=== PATIENT | female | born 1980 | race Caucasian/White ===

== ENCOUNTER 2019-04-12 09:06 | Day surgery (SDC) | payer OTHER ==
[2019-04-12] MEDS ORDERED: HYDROmorphONE 1 MG/5 ML IV SYRINGE IV ×3 (11:30)
[2019-04-12] MEDS ORDERED: OXYCODONE/ACETAMINOPHEN (5/325) TAB PO (11:30)
[2019-04-12] MEDS ORDERED: FENTAnyl 50 MCG/ML VIAL IV (11:30)
[2019-04-12] MEDS ORDERED: MEPERIDINE 25 MG INJ IV (11:30)
[2019-04-12] MEDS ORDERED: PROCHLORPERAZINE 10 MG INJ IV (11:30)
[2019-04-12] MEDS ORDERED: DIPHENHYDRAMINE 50 MG INJ IV (11:30)
[2019-04-12] MEDS ORDERED: BACITRACIN/POLYMYXIN 28.35 GM OINT TOP (12:03)
[2019-04-12] MEDS ORDERED: MIDAZOLAM 1 MG/ML 2 ML INJ (12:18)
[2019-04-12] MEDS ORDERED: PROPOFOL 20 ML ×2 (12:18→12:53)
[2019-04-12] MEDS ORDERED: LIDOCAINE 2% (SDV) 5 ML INJ (12:18)
[2019-04-12] MEDS ORDERED: SUCCINYLCHOLINE CHLORIDE 100 MG/5 ML SYG IV (12:18)
[2019-04-12] MEDS ORDERED: FENTAnyl 50 MCG/ML VIAL (12:19)
[2019-04-12] MEDS ORDERED: FAMOTIDINE 20 MG INJ (12:28)
[2019-04-12] MEDS ORDERED: DEXAMETHASONE 4 MG/ML 5 ML INJ (12:28)
[2019-04-12] MEDS ORDERED: ONDANSETRON 4 MG INJ (12:28)
[2019-04-12] MEDS ORDERED: CEFAZOLIN 1 GM INJ (12:28)
[2019-04-12] MEDS ORDERED: ROCURONIUM 50 MG INJ (12:32)
[2019-04-12] MEDS: COCAINE 4% 4 ML TOP (12:52)
[2019-04-12] MEDS: LIDOCAINE 1%/EPI 30 ML INJ (12:53)
[2019-04-12] MEDS ORDERED: PHENYLephrine (100 MCG/ML) 10ML SYG (13:02)
[2019-04-12] MEDS ORDERED: NEOSTIGMINE 3 MG/3 ML SYRINGE ×2 (13:19→13:24)
[2019-04-12] MEDS ORDERED: GLYCOPYRROLATE 0.4 MG INJ ×2 (13:19→13:24)
[2019-04-12] MEDS: ONDANSETRON 4 MG INJ IV (14:30)
== END 2019-04-12 15:58 | disposition home or self-care (01) ==
LOC: SDS 09:06
DX: J34.2 Deviated nasal septum (principal); J34.3 Hypertrophy of nasal turbinates
CPT/HCPCS: 30140; 84703; 88300

== ENCOUNTER 2019-04-13 04:01 | Emergency (ER) | payer OTHER | END 2019-04-13 05:01 | disposition home or self-care (01) | LOC: E/R 04:01 | DX: G89.18 Other acute postprocedural pain (principal) | CPT/HCPCS: 99283; Z7502 ==